=== PATIENT | male | born 1960 | race Caucasian/White ===

== ENCOUNTER 2017-09-08 21:00 | Inpatient (IN) | payer BC, SELFPAY ==
[2017-09-08 21:02] VITALS: BP 141/75; PULSE 126; RESP 18; TEMP 39.4; O2SAT 98; BMI 21.3
[2017-09-08] MEDS: Acetaminophen 500 MG Tablet 1000 MG PO (22:26)
[2017-09-08] MEDS: Ondansetron 4 MG/2 ML Vial IV (22:27)
[2017-09-08] MEDS: 0.9% Normal Saline 1,000 ML 1000 ML IV ×2 (22:27)
[2017-09-08] MEDS: Ketorolac 30 MG/ML Syringe IV (22:27)
[2017-09-08 22:45] VITALS: BP 133/76; PULSE 113; RESP 18; O2SAT 95
[2017-09-08 22:53] LABS: Mucous, Urine 0 SEEN /hpf (<or=2+); Red Blood Cells-Urine 0 SEEN /hpf (0-5)
[2017-09-08 22:56] LABS: Color, Urine Yellow (Yellow); Glucose, Dipstick Normal (Normal); Ketone-Dipstick Negative (Negative); Leukocyte Esterase-Dipstick 500 /ul (Negative); Nitrite-Dipstick Positive (Negative); Occult Blood-Urine 10 /ul (Negative); Protein-Dipstick 30 mg/dl (Negative); Specific Gravity, Urine 1.015 (1.002-1.030); Urine Bilirubin Dipstick Negative (Negative); Urine Clarity Cloudy (Clear); Urine Urobilinogen Normal (Normal)
[2017-09-08 22:58] LABS: Hematocrit 42.8 % (40-54); Hemoglobin 14.6 g/dl (13.0-16.5); Mean Corp Hgb Conc 34.1 g/gl (32-36); Mean Corpuscular Hgb 28.4 pg (27.0-32.0); Mean Corpuscular Volume 83.3 fL (80-94); Mean Platelet Vol. 9.2 fl (6.2-12.0); Platelet Count 201 K/mm3 (150-450); RBC Distribution Width CV 13.5 % (11.6-14.6); Red Blood Count 5.14 M/mm3 (4.6-6.2); White Blood Count 19.3 K/mm3 (4.4-11.0)
[2017-09-08 22:59] LABS: Scan Indicated on CBC? Y/N NO
[2017-09-08 23:04] LABS: Bacteria 2+ /hpf (None Seen)
[2017-09-08 23:05] LABS: Amorphous Sediment 1+; Squamous Epithelial Cells - UA 0-5 SEEN /hpf (0-5); Triple Phosphate Crystals Ur RARE /hpf (<or=1+); White Blood Cells 0-5 SEEN /hpf (0-5)
[2017-09-08 23:09] LABS: Anion Gap 8 (5-15); BUN 14 mg/dL (7-18); BUN/Creat Ratio 17.2 RATIO (10-20); Calcium,Total 8.5 mg/dL (8.5-10.1); Chloride 102 mmol/L (98-107); Creatinine, Serum 0.82 mg/dL (0.70-1.30); EST Glomerular Filtration Rate 104 mL/min (>60); Est Glom Filt Rate - Afr Amer 126 mL/min (>60); Estimated Creatinine Clearance 118.93 ml/min; Glucose 112 mg/dL (74-106); Potassium 3.4 mmol/L (3.5-5.1); Sodium Level 135 mmol/L (136-145)
[2017-09-08 23:28] VITALS: BP 140/73; PULSE 75; RESP 16; O2SAT 98
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
[2017-09-08 23:32] LABS: Lactic Acid 1.8 mmol/L (0.4-2.0)
[2017-09-09] VITALS (8 sets, daily range): BP systolic 124–147; BP diastolic 72–91; PULSE 74–103; RESP 16–18; TEMP 36.9–37.6; O2SAT 96–100; BMI 23.2; BMI 23.3
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
--- NOTE | 2017-09-09 05:16 | PCM.RX.CS ---
Consult Pharmacy has been consulted to manage selected antiobiotic: Vancomycin Type of Consult: New start Suspected Infection: Skin/Soft tissue Labs: Sodium 135 mmol/L (136-145) L 09/08/17 20:35 Potassium 3.4 mmol/L (3.5-5.1) L 09/08/17 20:35 Chloride 102 mmol/L (98-107) 09/08/17 20:35 Carbon Dioxide 25.0 mmol/L (21.0-32.0) 09/08/17 20:35 Anion Gap 8 (5-15) 09/08/17 20:35 BUN 14 mg/dL (7-18) 09/08/17 20:35 Creatinine 0.82 mg/dL (0.70-1.30) 09/08/17 20:35 Est GFR (MDRD) Af Amer 126 mL/min (>60) 09/08/17 20:35 Est GFR (MDRD) Non-Af 104 mL/min (>60) 09/08/17 20:35 BUN/Creatinine Ratio 17.2 RATIO (10-20) 09/08/17 20:35 Glucose 112 mg/dL (74-106) H 09/08/17 20:35 Estimated Creatinine Clearance: 118.93 Goal Trough: 10-15 mcg/mL Pharmacy Plan for Drug Dosing: Pharmacy Service will continue to monitor and adjust dosing as required. Medications Vancomycin HCl 1,500 mg/ (Sodium Chloride) 530 mls @ 250 mls/hr IV Q12H MAYRA Discontinued Medications Vancomycin HCl 1,250 mg/ (Sodium Chloride) 275 mls @ 183.3 mls/hr IV X1 ONE Stop: 09/08/17 23:43 Last Admin: 09/08/17 23:20 Dose: 183.3 mls/hr Follow-Up Labs: Trough Vancomycin Labs to be done on [date and time ordered]: 09/10 @ 1100
[2017-09-09 06:11] LABS: Hematocrit 40.5 % (40-54); Hemoglobin 13.8 g/dl (13.0-16.5); Mean Corp Hgb Conc 34.1 g/gl (32-36); Mean Corpuscular Hgb 28.7 pg (27.0-32.0); Mean Corpuscular Volume 84.2 fL (80-94); Mean Platelet Vol. 9.2 fl (6.2-12.0); Platelet Count 179 K/mm3 (150-450); RBC Distribution Width CV 13.9 % (11.6-14.6); RBC Distribution Width SD 42.1 fl (35.1-43.9); Red Blood Count 4.81 M/mm3 (4.6-6.2); White Blood Count 12.2 K/mm3 (4.4-11.0)
[2017-09-09 06:14] LABS: Scan Indicated on CBC? Y/N NO
[2017-09-09 06:24] LABS: Anion Gap 10 (5-15); BUN 13 mg/dL (7-18); BUN/Creat Ratio 16.3 RATIO (10-20); Calcium,Total 7.9 mg/dL (8.5-10.1); Chloride 104 mmol/L (98-107); EST Glomerular Filtration Rate 107 mL/min (>60); Est Glom Filt Rate - Afr Amer 130 mL/min (>60); Estimated Creatinine Clearance 132.88 ml/min; Glucose 101 mg/dL (74-106); Potassium 3.4 mmol/L (3.5-5.1); Sodium Level 140 mmol/L (136-145)
[2017-09-09 06:40] LABS: Bedside Glucose 107 mg/dL (70-110)
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
--- NOTE | 2017-09-09 10:20 | CASEMGMT ---
RN RENE Face to Face with patient for initial transition planning/care coordination assessment. RN CM introduced self and role at [facility]. Patient sitting in chair, alert and oriented. Patient willing to participate in assessment and is able to answer all questions appropriately. Care providers, pharmacy, and demographics verified. See link attached. Patient wishes to discharge home, denies need for home health at this time. Patient states he has no further needs or concerns at this time. CM to follow for discharge planning needs that may arise. Disposition Plan: Patient to discharge home with family support and follow-up plans in place.
[2017-09-09] MEDS: Calcium Carb/Vitamin D 1 TABLET Tablet PO (10:54)
[2017-09-09] MEDS: Omega-3 Acid Ethyl Esters 1 GM Capsule PO (10:54)
[2017-09-09] MEDS: Enoxaparin 40 MG/0.4 ML Syringe SC (10:54)
[2017-09-09 12:06] LABS: Bedside Glucose 131 mg/dL (70-110)
[2017-09-09 16:10] LABS: Bedside Glucose 142 mg/dL (70-110)
[2017-09-10 02:00] VITALS: BP 130/67; PULSE 101; RESP 16; TEMP 37.6; O2SAT 94
[2017-09-10 06:35] LABS: Bedside Glucose 117 mg/dL (70-110)
--- NOTE | 2017-09-10 08:04 | PCM.PROGNOTE ---
Subjective: Day #2 antibiotics All events of the past 24 hours of been reviewed. T-max for the past 24 hours has been 99.7. Vital signs are stable. He is 94-100% saturated on room air. Urine culture is growing greater than 100,000 colonies of a gram-negative lio. - Physical Exam Vital Signs Temp Pulse Resp BP Pulse Ox 99.6 F H 101 H 16 130/67 H 94 09/10/17 02:00 09/10/17 02:00 09/10/17 02:00 09/10/17 02:00 09/10/17 02:00 Oxygen Delivery Method Room Air Weight: 196 lb 3.382 oz Body Mass Index (BMI) 23.2 Intake and Output for Last 24 Hours 09/08/17 09/09/17 09/10/17 23:59 23:59 23:59 Intake Total 3442 / 3442 1415 / 1415 Output Total 1450 / 1450 2450 / 2450 Balance 1991 / 1991 -1035 / -1035 POC Glucose 09/10/17 09/09/17 09/09/17 06:12 16:05 11:58 POC Glucose 117 H 142 H 131 H Medical Necessity - Tobacco Use Smoking Status: Never smoker
--- NOTE | 2017-09-10 08:07 | PN_ITS ---
Subjective: Day #2 antibiotics All events of the past 24 hours of been reviewed. T-max for the past 24 hours has been 99.7. Vital signs are stable. He is 94- 100% saturated on room air. Urine culture is growing greater than 100,000 colonies of a gram-negative lio. - Physical Exam Vital Signs Temp Pulse Resp BP Pulse Ox 99.6 F H 101 H 16 130/67 H 94 09/10/17 02:00 09/10/17 02:00 09/10/17 02:00 09/10/17 02:00 09/10/17 02:00 Oxygen Delivery Method Room Air Weight: 196 lb 3.382 oz Body Mass Index (BMI) 23.2 Intake and Output for Last 24 Hours 09/08/17 09/09/17 09/10/17 23:59 23:59 23:59 Intake Total 3442 / 3442 1415 / 1415 Output Total 1450 / 1450 2450 / 2450 Balance 1991 / 1991 -1035 / -1035 POC Glucose 09/10/17 09/09/17 09/09/17 06:12 16:05 11:58 POC Glucose 117 H 142 H 131 H Medical Necessity - Tobacco Use Smoking Status: Never smoker
[2017-09-10 08:55] VITALS: BP 140/74; PULSE 85; RESP 18; TEMP 37.2; O2SAT 98
[2017-09-10 08:56] VITALS: RESP 18
--- NOTE | 2017-09-10 09:11 | SLEEP ---
Seen patient and education was give on screening/testing for sleep disordered breathing. Patient states that he does snore and has had three negative sleep studies in the past. I left patient with a brochure of information and questions were answered.
[2017-09-10] MEDS: Calcium Carb/Vitamin D 1 TABLET Tablet PO (09:12)
[2017-09-10] MEDS: Enoxaparin 40 MG/0.4 ML Syringe SC (09:13)
[2017-09-10] MEDS: Omega-3 Acid Ethyl Esters 1 GM Capsule PO (09:13)
[2017-09-10 11:27] LABS: Vancomycin, Trough Level 9.4 ug/mL (5.0-15.0)
[2017-09-10 11:30] LABS: Bedside Glucose 117 mg/dL (70-110)
--- NOTE | 2017-09-10 12:13 | PCM.RX.CS ---
Consult Pharmacy has been consulted to manage selected antiobiotic: Vancomycin Type of Consult: Follow-up Suspected Infection: Skin/Soft tissue Prior Doses of Antibiotics Received/Current Regimen: Currently on 1500mg IV q12h Labs: Sodium 140 mmol/L (136-145) 09/09/17 05:45 Potassium 3.4 mmol/L (3.5-5.1) L 09/09/17 05:45 Chloride 104 mmol/L (98-107) 09/09/17 05:45 Carbon Dioxide 26.0 mmol/L (21.0-32.0) 09/09/17 05:45 Anion Gap 10 (5-15) 09/09/17 05:45 BUN 13 mg/dL (7-18) 09/09/17 05:45 Creatinine 0.80 mg/dL (0.70-1.30) 09/09/17 05:45 Est GFR (MDRD) Af Amer 130 mL/min (>60) 09/09/17 05:45 Est GFR (MDRD) Non-Af 107 mL/min (>60) 09/09/17 05:45 BUN/Creatinine Ratio 16.3 RATIO (10-20) 09/09/17 05:45 Glucose 101 mg/dL (74-106) 09/09/17 05:45 Vancomycin Trough 9.4 ug/mL (5.0-15.0) 09/10/17 10:20 Goal Trough: 10-15 mcg/mL Pharmacy Plan for Drug Dosing: Vancomycin trough obtained before this morning's dose was 9.4. It is not far off from the target range of 10-15 but we will increase the dose to 1750mg IV q12h to try to make sure it gets within goal range. Will get another trough before the 4th dose. Pharmacy Service will continue to monitor and adjust dosing as required. Follow-Up Labs: Trough Vancomycin Labs to be done on [date and time ordered]: 09/12/17 at 10:30
[2017-09-10 16:55] VITALS: BP 143/86; PULSE 87; RESP 18; TEMP 36.1; O2SAT 98
[2017-09-10 16:56] VITALS: RESP 18
[2017-09-10 17:10] LABS: Bedside Glucose 143 mg/dL (70-110)
[2017-09-10 20:01] VITALS: BP 163/95; PULSE 84; RESP 16; TEMP 37.3; O2SAT 99
--- NOTE | 2017-09-10 21:27 | PCM.PROGNOTE ---
Subjective: Tmax the past 24 hours has been 99.7. Vital signs are stable. Blood pressure is mildly increased but labile. He is 99% saturated on room air. BS's are all less than 150 Blood cultures have no growth so far. The urine culture is growing Serratia Fonticola -she tells me that the urine sample was drawn from his bag and not from the tubing. The urine in the Saenz bag today is clear and I suspect that this is contamination the redness in the RLE continues to fade. He has no complaints today Objective: Physical Exam General: Alert, Oriented x3, Cooperative HEENT: Atraumatic, Normocephalic Neck: Supple Lungs: Clear to auscultation, Normal air movement, No rhonchi, No wheeze, No rales Cardiovascular: Regular rate, Normal S1, Normal S2, No murmurs Abdomen: Bowel Sounds Present, Soft, Non Tender Extremities: No edema, Capillary Refill Less than 3 Seconds Skin: - - right lateral lower ext from ankle to mid calf is diffusely erythematous, non fluctuant and unable to ascertain tenderness due to paraplegia. The redness is fading and there are no openings in the skin no tinea pedis Musculoskeletal: No Tenderness to Palpation of Joints or Extremities...no feeling in his legs Neurological: Neuro grossly intact, except for the paraplegia also having muscle spasms Psych/Mental Status: Normal Affect, Appropriate - Physical Exam Vital Signs Temp Pulse Resp BP Pulse Ox 99.2 F H 84 16 163/95 H 99 09/10/17 20:01 09/10/17 20:01 09/10/17 20:01 09/10/17 20:01 09/10/17 20:01 Oxygen Delivery Method Room Air Weight: 196 lb 3.382 oz Body Mass Index (BMI) 23.2 Intake and Output for Last 24 Hours 09/08/17 09/09/17 09/10/17 23:59 23:59 23:59 Intake Total 3442 / 3442 3665 / 3665 Output Total 1450 / 1450 4000 / 4000 Balance 1991 / 1991 -335 / -335 Laboratory Tests Past 24 Hrs 09/10/17 10:20 Vancomycin Trough 9.4 POC Glucose 09/10/17 09/10/17 09/10/17 17:03 11:26 06:12 POC Glucose 143 H 117 H 117 H Medical Necessity - Tobacco Use Smoking Status: Never smoker Assessment/Plan All Active Problems Cellulitis of right lower extremity (Acute) Impressions 1. cellulitis of the RLE - no hx of MRSA in the past 2. urine specimen taken from the bag and not the tubing so it is contaminated 3. Paraplegia - long standing 4. Hyperglycemia with no hx of DM 5. HTN 6. chronic saenz DC the [facility] Recheck the lab in the AM Continue the AMpicillin Urine is very clear and pale in the saenz bag and I do not see the need to repeat a UA and culture Code Visit Inpatient E&M: 22870 Subs Hosp L2
[2017-09-10 22:20] LABS: Bedside Glucose 143 mg/dL (70-110)
[2017-09-11 02:00] VITALS: BP 123/70; PULSE 82; RESP 16; TEMP 36.9; O2SAT 97
[2017-09-11 06:12] LABS: Absolute Lymphocyte Count 1.34 X10^3/ul (0.83-4.51); Basophil# 0.02 X10^3/uL; Basophil% 0.3 % (0-1); Eosinophil# 0.21 X10^3/uL; Eosinophils% 2.9 % (0-5); Hematocrit 37.8 % (40-54); Hemoglobin 12.8 g/dl (13.0-16.5); Lymphocyte # 1.34 X10^3/ul (4.0); Lymphocyte % 18.5 % (19-41); Mean Corp Hgb Conc 33.9 g/gl (32-36); Mean Corpuscular Hgb 28.8 pg (27.0-32.0); Mean Corpuscular Volume 84.9 fL (80-94); Mean Platelet Vol. 9.5 fl (6.2-12.0); Monocyte# 0.67 X10^3/uL; Monocyte% 9.2 % (0-10); Neutrophil % 68.8 % (47-70); Platelet Count 204 K/mm3 (150-450); RBC Distribution Width CV 13.7 % (11.6-14.6); Red Blood Count 4.45 M/mm3 (4.6-6.2); White Blood Count 7.3 K/mm3 (4.4-11.0)
[2017-09-11 06:19] LABS: Anion Gap 8 (5-15); BUN 7 mg/dL (7-18); BUN/Creat Ratio 11.4 RATIO (10-20); Calcium,Total 8.3 mg/dL (8.5-10.1); Chloride 110 mmol/L (98-107); Creatinine, Serum 0.61 mg/dL (0.70-1.30); EST Glomerular Filtration Rate 145 mL/min (>60); Est Glom Filt Rate - Afr Amer 175 mL/min (>60); Estimated Creatinine Clearance 174.27 ml/min; Glucose 100 mg/dL (74-106); Potassium 3.8 mmol/L (3.5-5.1); Sodium Level 143 mmol/L (136-145)
[2017-09-11 06:36] LABS: POSITIVE COUNT NO; POSITIVE DIFFERENTIAL NO; POSITIVE MORPHOLOGY NO
[2017-09-11 07:16] LABS: Bedside Glucose 116 mg/dL (70-110)
[2017-09-11] MEDS: 0.9% NaCl IVPB Med Flush (250 mL) 15 ML IV (07:17)
[2017-09-11 08:00] VITALS: BP 130/78; PULSE 86; RESP 18; TEMP 36.8; O2SAT 98
[2017-09-11 08:00] LABS: Hemoglobin A1c 5.6 % (4.2-6.3)
[2017-09-11] MEDS: Calcium Carb/Vitamin D 1 TABLET Tablet PO (08:41)
[2017-09-11] MEDS: Omega-3 Acid Ethyl Esters 1 GM Capsule PO (08:41)
--- NOTE | 2017-09-11 09:25 | PCM.DC ---
You will use the following diet at home:: Other - Resume previous diet Your food should be the consistency of: Regular Your liquids should be the consistency of: Regular/Thin Discharge Activity: Return to Normal Activity Call your doctor if you observe: Fever of 101 or Higher, Inability to urinate, Inability to have a bowel movement, Shortness of breath, Dizziness, Fainting spells, Swelling in the ankles, Chest pain, - - Call your PCP if severe diarrhea, painful sores in the mouth, painful swallowing, rash or itching. Additional Instructions: The HGBA1C was normal and you are not diabetic. The blood sugars were likely elevated due to the infection. You will be on antibiotics for 7 days after discharge. Take the Bactrim DS 2 tablets twice a day. Sometimes it helps to take a probiotic if you get loose stool. Pleasure to meet you and I enjoyed out conversations. Pending Tests on Discharge: none Allergies/Adverse Reactions: Allergies lisinopril Adverse Reaction (Verified 09/08/17 21:01) Other rosuvastatin [From [facility]] Adverse Reaction (Verified 09/08/17 21:01) Other Medications to take at Discharge Calcium Carb/Vitamin D 600 mg PO DAILY 09/27/16 Hydrochlorothiazide [Hctz] 12.5 mg PO DAILY 09/27/16 [place]-3 Fatty Acids/Fish Oil [[place] 3 1,000 mg Softgel] 1 each PO DAILY 09/27/16 Ergocalciferol 400 units PO DAILY 09/08/17 Sulfamethoxazole/Trimethoprim [Bactrim Ds Tablet] 2 ea PO BID #28 tab 09/11/17 The following prescriptions were given: Sulfamethoxazole/Trimethoprim [Bactrim Ds Tablet] 2 ea PO BID #28 tab Primary Care Physician: David Rice III, MD [Primary Care Provider] - Please follow up with your Primary Care Physician in: 5-7 days Proposed Discharge Date: 09/11/17
--- NOTE | 2017-09-11 09:31 | DCINST_ITS ---
You will use the following diet at home:: Other - Resume previous diet Your food should be the consistency of: Regular Your liquids should be the consistency of: Regular/Thin Discharge Activity: Return to Normal Activity Call your doctor if you observe: Fever of 101 or Higher, Inability to urinate, Inability to have a bowel movement, Shortness of breath, Dizziness, Fainting spells, Swelling in the ankles, Chest pain, - - Call your PCP if severe diarrhea , painful sores in the mouth, painful swallowing, rash or itching. Additional Instructions: The HGBA1C was normal and you are not diabetic. The blood sugars were likely elevated due to the infection. You will be on antibiotics for 7 days after discharge. Take the Bactrim DS 2 tablets twice a day. Sometimes it helps to take a probiotic if you get loose stool. Pleasure to meet you and I enjoyed out conversations. Pending Tests on Discharge: none Allergies/Adverse Reactions: Allergies lisinopril Adverse Reaction (Verified 09/08/17 21:01) Other rosuvastatin [From [facility]] Adverse Reaction (Verified 09/08/17 21:01) Other Medications to take at Discharge Calcium Carb/Vitamin D 600 mg PO DAILY 09/27/16 Hydrochlorothiazide [Hctz] 12.5 mg PO DAILY 09/27/16 [place]-3 Fatty Acids/Fish Oil [[place] 3 1,000 mg Softgel] 1 each PO DAILY Ergocalciferol 400 units PO DAILY 09/08/17 Sulfamethoxazole/Trimethoprim [Bactrim Ds Tablet] 2 ea PO BID #28 tab 09/11/17 The following prescriptions were given: Sulfamethoxazole/Trimethoprim [Bactrim Ds Tablet] 2 ea PO BID #28 tab Primary Care Physician: David Rice III, MD [Primary Care Provider] - Please follow up with your Primary Care Physician in: 5-7 days Proposed Discharge Date: 09/11/17
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
== END 2017-09-11 16:12 | disposition home or self-care (01) | DRG 603 ==
LOC: ED 22:16 → MS3 09-09 00:25
PROVIDERS: Admitting Provider Family Medicine; Emergency Provider Emergency Medicine; Family Provider Family Medicine; PCP Family Medicine; Visit Provider Internal Medicine
DX: L03.115 Cellulitis of right lower limb (principal); G82.20 Paraplegia, unspecified; I10 Essential (primary) hypertension; R73.9 Hyperglycemia, unspecified; N31.9 Neuromuscular dysfunction of bladder, unspecified; V29.9XXS Motorcycle rider (driver) (passenger) injured in unspecified traffic accident, sequela
CPT/HCPCS: 36415; 80048; 80202; 81001; 82962; 83036; 83605; 85025; 85027; 87040; 87077; 87086; 87088; 87186; 97802; 99285; J7030; J7040; J7050; A4216; J0295; J2405

== ENCOUNTER → 2018-12-30 | Outpatient (CLI) | payer BC, SELFPAY ==
--- NOTE | 2018-12-30 08:04 | CT_ITS ---
STUDY: CT CHEST WITHOUT CONTRAST REASON FOR EXAM: Male, 58 years old. Hyperlipidemia. RADIATION DOSAGE (If Supplied By Facility): CTDIvol = ( 12.19 ) mGy, DLP = ( 2243.79 ) mGycm TECHNIQUE: Transaxial imaging was performed without the administration of intravenous contrast material. Coronary artery calcium scoring protocol. Individualized dose optimization techniques were used for this CT. COMPARISON: Chest radiograph 09/27/2016. FINDINGS: Heart and great vessels: Study was performed per coronary artery calcium scoring protocol. Please see separate report regarding the coronary artery calcium score. Heart size within normal limits. Lungs, pleura: Small cluster of tree-in-bud nodules in the posterior aspect of the right lung base. Visualized lungs are otherwise clear. Mediastinum: No adenopathy or mass or hematoma. Osseous: No fracture or acute osseous abnormality. Right scoliosis thoracolumbar spine partially visible. Chest wall: No concerning findings. Upper abdomen: No acute findings. CT/Limited Chest CT w/CCTA IMPRESSION: Small cluster of tree-in-bud nodules in the posterior aspect of the right lung base, suspicious for a mild atypical pneumonia or noninfectious inflammatory pneumonitis. Electronically Signed: Galdino Jackson, at 9:38 EDT Tel , Service support ,
[2018-12-30 08:13] VITALS: BP 145/85; PULSE 57; RESP 18; O2SAT 97; BMI 22.5
--- NOTE | 2018-12-30 20:58 | CA.SCORE ---
Calcium Scoring Date of Study:: 12/30/18 Coronary Calcium Scoring: High-resolution Computed Tomographic imaging of the chest was performed on 12/30/2018 with particular attention paid to the coronary arteries. Images from the examination were analyzed for the presence and extent of coronary artery calcification , using coronary calcium quantification software. The patient tolerated the procedure well and there were no complications. The results of the coronary calcification analysis are provided below. - Findings Left Main (LM): 0 Left Anterior Descending (LAD): 64.4 Left Circumflex (LCX): 108 Right Coronary Artery (RCA): 11.5 Total Agatston Score: 183.9 Percentile Ranking: Percentile ranking: Between 50 and 75% of patients of the same gender/similar age had the same/lower scores. Calcium Scoring Interpretation: 0 No identifiable atherosclerotic plaque. Very low cardiovascular disease risk. <5% chance of presence coronary artery disease A Negative Examination 1-10 Minimal Plaque burden. Significant coronary artery disease very unlikely. 11-100 Mild plaque burden. Likely mild or minimal coronary atherosclerosis. 101-400 Moderate plaque burden Moderate non-obstructive coronary artery disease highly likely. Over 400 Extensive plaque burden. High likelihood of at least one significant coronary stenosis (>50% diameter) Calcium Score: 101 - 400 Moderate non-obstructive coronary artery disease highly like - Continue cardiovascular risk factor evaluation and care as deemed appropriate.97
== END | disposition home or self-care (01) ==
PROVIDERS: Family Provider Family Medicine; PCP Family Medicine; Referring Provider Family Medicine; Visit Provider Family Medicine
DX: E78.5 Hyperlipidemia, unspecified (principal); I10 Essential (primary) hypertension
CPT/HCPCS: 75571; 76380

== ENCOUNTER → 2019-02-01 | Outpatient (CLI) | payer BC, SELFPAY ==
[2018-12-30 08:13] VITALS: BMI 22.5
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
== END | disposition home or self-care (01) ==
LOC: RAD 09:09
PROVIDERS: Family Provider Family Medicine; PCP Family Medicine; Referring Provider Family Medicine; Visit Provider Family Medicine
DX: J69.0 Pneumonitis due to inhalation of food and vomit (principal)
CPT/HCPCS: 74230; 92611

== ENCOUNTER 2019-02-09 07:53 | Outpatient (RCR) | payer BC, SELFPAY ==
[2018-12-30 08:13] VITALS: BMI 22.5
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
== END 2019-02-09 19:00 | disposition home or self-care (01) ==
LOC: SP 07:53
PROVIDERS: Family Provider Family Medicine; PCP Family Medicine; Referring Provider Family Medicine; Visit Provider Family Medicine
DX: K21.9 Gastro-esophageal reflux disease without esophagitis (principal)
CPT/HCPCS: 92610

== ENCOUNTER → 2025-01-11 | Outpatient (CLI) | payer BC, SELFPAY | END | disposition home or self-care (01) | LOC: LABSPEC 15:12 | PROVIDERS: PCP Family Medicine; Referring Provider Otolaryngology Otolaryngology/Facial Plastic Surgery; Visit Provider Otolaryngology Otolaryngology/Facial Plastic Surgery | DX: J32.9 Chronic sinusitis, unspecified (principal) | CPT/HCPCS: 87070; 87077; 87186; 87205 ==